=== PATIENT | female | born 1970 | race Caucasian/White ===

== ENCOUNTER 2019-05-27 07:55 | Day surgery (SDC) | payer OTHER ==
[~2019-05-27] VITALS: Ht 172.7 cm; Wt 70.3 kg
[~2019-05-27 07:55] MED LIST: ACYCLOVIR 400400 MG PO; ARMOUR THYROID180 M1 PO; ATIVAN0.5 M1 PO; B12INJ IM; BUSPIRONE HCL15 MG PO; BUTORPHANOLNS NASAL; BUTORPHANOLNS2 NS; CARISOPRODOL 3350 MG PO; CASCARA SAGRADA1 ML PO; DESYREL300 MG PO; EFFEXOR XR150 MG PO; EFFEXOR XR75 MG PO; KEPPRA 500 MG500 M1 PO; KEPPRA1000 MG PO; LEVOXYL150 MCG PO; MAXALT5 MG PO; NABUMETONE 500500 M1 PO; NEURONTIN 300M300 M2 PO; SINGULAIR 10 MG10 M1 PO; SYNTHROID100 MCG; TOPAMAX 100 MG100 MG PO; TRAMADOL 50 MG50 MG PO; TURMERIC500 M2 PO; VICODIN ES 7.51 EACH PO; VITAMIN B-125000 MCG PO; XANAX 0.5 MG0.5 M1; ZANAFLEX2 M1 PO; ZANAFLEX4 MG PO; ZOFRAN4 MG PO
[2019-05-27 09:19] VITALS: BP 122/74
[2019-05-27] MEDS ORDERED: NORCO 5-325 TA1 EAC1 PO (10:04)
[2019-05-27 11:14] VITALS: BP 122/74
--- NOTE | 2019-05-29 10:07 | PATH ---
[facility] [place] [address] PATHOLOGY RPT PROCEDURE Name: SUDHA AGARWAL ARON Room #: [facility] M.R.#: [id number] Admission: 05/27/19 Date of : 66 Discharge: 05/27/19 Report #: [id number] Path Case #: [id number] [facility] Accession Number: [id number] . 01 Material submitted: . hernia - INCARCERATED OMENTUM IN HERNIA SAC . 01 Clinical history: . Umbilical hernia without obstruction or gangrene . 02 Diagnosis: Incarcerated omentum in hernia sac, repair: - Fragments of fibroadipose tissue consistent with omentum tissue showing fat necrosis. - Fragments of fibrovascular connective tissue showing reactive/reparative changes and congestion, history of incarcerated hernia. . (IUV:mml; 05/28/2019) QLM 05/28/2019 1521 Local . 02 Electronically signed: . Brenna Palencia MD, Pathologist NPI- [id number] . 01 Gross description: . The specimen is received in formalin, labeled "Sudha Agarwal, incarcerated omentum in hernia sac" and consists of yellow orange adipose tissue with attached pink membranous tissue measuring 3.5 x 2.8 x 1.1 cm. Sectioning reveals no masses or lesions and phlebotomy services representative sections are submitted in A1. (SDY; 05/27/2019) SYU/SYU 05/27/2019 [facility] Local . 02 Pathologist provided ICD-10: K65.4 . 02 CPT . 859335 Specimen Comment: A courtesy copy of this report has been sent to Specimen Comment: [phone]. Specimen Comment: Report sent to Specimen Comment: A duplicate report has been generated due to demographic updates. Performed at: [address] [id number] MD Zeke Lynne MD Phone: [phone] [address] [address] [place] [address] PATHOLOGY RPT PROCEDURE Name: SUDHA AGARWAL ARON Room #: [facility] Ivan#: [id number] Admission: 05/27/19 Date of : 66 Discharge: 05/27/19 Report #: [id number] Path Case #: [id number] Performed at: [address] [id number] MD Brenna Palencia MD Phone: [phone]
--- NOTE | 2019-06-11 15:46 | O ---
[facility] [place] [address] OPERATIVE REPORT Name: BEAU FINCH Room #: [facility] M.R.#: [id number] Admission: 05/27/19 Attend Phys: Eddie Padilla MD Discharge: 05/27/19 Date of : 66 Report #: [id number] THIS REPORT FOR: //name// CC: Bhakti Padilla DATE OF SERVICE: 05/27/[address] Eddie Padilla and Dr. Bhakti Capone. PREOPERATIVE DIAGNOSIS: Incarcerated ventral incisional umbilical hernia. POSTOPERATIVE DIAGNOSIS: Incarcerated ventral incisional umbilical hernia. PROCEDURE: Repair of an incarcerated ventral incisional umbilical hernia. SURGEON: Eddie Padilla MD. ANESTHESIA: Local IV sedation. DESCRIPTION OF PROCEDURE: The patient was brought to the operating room and placed on operative table in the supine position. Sequential compression devices were in place for DVT prophylaxis. There was no indication for preoperative antibiotics. The patient underwent IV sedation. The abdomen was then prepped and draped in a sterile fashion. Skin and subcutaneous tissue were then infiltrated with 0.5% Marcaine and 1% Xylocaine in a 1:1 mixture. A transverse infraumbilical skin incision was then performed using #15 scalpel blade. Hemostasis obtained using electrocautery. Dissection was carried down through subcutaneous tissue to the incarcerated umbilical hernia sac with some incarcerated omentum. This was dissected free and the hernia sac and incarcerated omentum was clamped, tied and excised with a 2-0 chromic tie. The fascial defect was then closed with a [id number] #1 Prolene suture. The umbilicus was then attached to the fascia and the deep and superficial subcutaneous tissue were then reapproximated using simple interrupted 2-0 chromic sutures and the skin then closed with a running 4-0 subcuticular Vicryl stitch. The wound was then dressed with Dermabond, Telfa, 4 x 4 gauze, sponge, and tape. The patient was then taken to the recovery room awake, alert, in good condition. Estimated blood loss was approximately 5 mL and the patient tolerated procedure well. All sponge, lap and instrument counts correct x 2. <ELECTRONICALLY SIGNED> By: Eddie Padilla MD 06/11/19 1546 [id number] Eddie Padilla MD /nt
== END 2019-05-27 11:53 | disposition home or self-care (01) ==
LOC: OR 07:55 → TBA 07:56 → OR 11:38
DX: K43.0 Incisional hernia with obstruction, without gangrene (principal); G43.909 Migraine, unspecified, not intractable, without status migrainosus; F31.9 Bipolar disorder, unspecified; F41.9 Anxiety disorder, unspecified; G40.909 Epilepsy, unspecified, not intractable, without status epilepticus; F17.210 Nicotine dependence, cigarettes, uncomplicated; Z87.19 Personal history of other diseases of the digestive system; Z90.49 Acquired absence of other specified parts of digestive tract; Z88.8 Allergy status to other drugs, medicaments and biological substances; Z79.899 Other long term (current) drug therapy
CPT/HCPCS: 50010; 50101; 50386; 50417; 54118; 56524; 56525; 56526; 62110; 62850; 70005